=== PATIENT | female | born 2000 | race Caucasian/White ===

== ENCOUNTER → 2019-12-26 10:33 | Outpatient (BNVA) | payer OTHER, SELFPAY | PROVIDERS: Family Provider Family Medicine; Visit Provider Nurse Practitioner Family | DX: Z11.59 Encounter for screening for other viral diseases (principal); Z20.828 Contact with and (suspected) exposure to other viral communicable diseases; J06.9 Acute upper respiratory infection, unspecified | CPT/HCPCS: 87635 ==

== ENCOUNTER → 2020-08-16 13:40 | Outpatient (BNVA) | payer OTHER, SELFPAY | PROVIDERS: Family Provider Family Medicine; PCP Family Medicine; Visit Provider Obstetrics & Gynecology | DX: Z12.4 Encounter for screening for malignant neoplasm of cervix (principal) | CPT/HCPCS: 88175 ==

== ENCOUNTER → 2021-09-05 11:12 | Outpatient (BNVA) | payer OTHER, SELFPAY | PROVIDERS: Family Provider Family Medicine; Visit Provider Obstetrics & Gynecology | DX: Z01.419 Encounter for gynecological examination (general) (routine) without abnormal findings (principal) | CPT/HCPCS: 87624 ==

== ENCOUNTER → 2022-07-21 08:52 | Outpatient (BNVA) | payer OTHER, SELFPAY | PROVIDERS: Family Provider Family Medicine; Visit Provider Obstetrics & Gynecology | DX: Z32.00 Encounter for pregnancy test, result unknown (principal) | CPT/HCPCS: 81025 ==

== ENCOUNTER → 2022-08-06 07:46 | Outpatient (BNVA) | payer OTHER, SELFPAY | PROVIDERS: Family Provider Family Medicine; Visit Provider Obstetrics & Gynecology | DX: Z34.90 Encounter for supervision of normal pregnancy, unspecified, unspecified trimester (principal) | CPT/HCPCS: 76801 ==

== ENCOUNTER → 2022-08-18 14:30 | Outpatient (BNVA) | payer OTHER, SELFPAY | PROVIDERS: Family Provider Family Medicine; Visit Provider Obstetrics & Gynecology | DX: Z34.90 Encounter for supervision of normal pregnancy, unspecified, unspecified trimester (principal) | CPT/HCPCS: 80307; 84315; 85027; 86592; 86762; 86803; 86850; 86900; 87086; 87340; 87806 ==

== ENCOUNTER → 2022-09-22 13:00 | Outpatient (BNVA) | payer OTHER, BC, MEDICAID, SELFPAY | PROVIDERS: Family Provider Family Medicine; Visit Provider Obstetrics & Gynecology | DX: Z21 Asymptomatic human immunodeficiency virus [HIV] infection status (principal); Z34.90 Encounter for supervision of normal pregnancy, unspecified, unspecified trimester | CPT/HCPCS: 84315; 87389; 87536 ==

== ENCOUNTER → 2022-10-28 14:29 | Outpatient (BNVA) | payer OTHER, SELFPAY | PROVIDERS: Family Provider Family Medicine; Visit Provider Obstetrics & Gynecology | DX: Z34.80 Encounter for supervision of other normal pregnancy, unspecified trimester (principal) | CPT/HCPCS: 76805 ==

== ENCOUNTER → 2022-11-24 10:00 | Outpatient (BNVA) | payer OTHER, SELFPAY | PROVIDERS: Family Provider Family Medicine; Visit Provider Nurse Practitioner Women's Health | DX: Z34.80 Encounter for supervision of other normal pregnancy, unspecified trimester (principal) | CPT/HCPCS: 84315; 87491; 87591 ==

== ENCOUNTER → 2022-11-25 15:22 | Outpatient (BNVA) | payer OTHER, SELFPAY | PROVIDERS: Family Provider Family Medicine; Visit Provider Obstetrics & Gynecology | DX: Z34.80 Encounter for supervision of other normal pregnancy, unspecified trimester (principal) | CPT/HCPCS: 76816 ==

== ENCOUNTER → 2022-12-22 08:56 | Outpatient (BNVA) | payer OTHER, SELFPAY | PROVIDERS: Family Provider Family Medicine; Visit Provider Obstetrics & Gynecology | DX: Z34.80 Encounter for supervision of other normal pregnancy, unspecified trimester (principal) | CPT/HCPCS: 82950; 84315; 85025; 87536; 87806 ==

== ENCOUNTER → 2023-01-06 09:14 | Outpatient (BNVA) | payer OTHER, BC, MEDICAID, SELFPAY | PROVIDERS: Family Provider Family Medicine; Visit Provider Obstetrics & Gynecology | DX: Z36.2 Encounter for other antenatal screening follow-up (principal) | CPT/HCPCS: 76816 ==

== ENCOUNTER → 2023-02-16 08:04 | Outpatient (BNVA) | payer OTHER, BC, MEDICAID, SELFPAY | PROVIDERS: Family Provider Family Medicine; Visit Provider Obstetrics & Gynecology | DX: Z34.80 Encounter for supervision of other normal pregnancy, unspecified trimester (principal) | CPT/HCPCS: 84315; 87081 ==

== ENCOUNTER → 2023-03-10 09:17 | Outpatient (BNVA) | payer OTHER, BC, MEDICAID, SELFPAY | PROVIDERS: Family Provider Family Medicine; Visit Provider Obstetrics & Gynecology | DX: Z34.80 Encounter for supervision of other normal pregnancy, unspecified trimester (principal); Z21 Asymptomatic human immunodeficiency virus [HIV] infection status | CPT/HCPCS: 84315; 86592; 87536; 87806 ==

== ENCOUNTER → 2023-03-16 10:15 | Outpatient (BNVA) | payer OTHER, BC, MEDICAID, SELFPAY | PROVIDERS: Family Provider Family Medicine; Visit Provider Obstetrics & Gynecology | DX: Z34.80 Encounter for supervision of other normal pregnancy, unspecified trimester (principal) | CPT/HCPCS: 76819; 84315 ==

== ENCOUNTER 2023-03-18 16:06 | Inpatient (IN) | payer OTHER, BC, MEDICAID, SELFPAY ==
[2023-03-18] VITALS (18 sets, daily range): BP systolic 115–176; BP diastolic 62–97; PULSE 60–95; RESP 16; TEMP 36.1–36.3; BMI 27.6
--- NOTE | 2023-03-18 17:10 | PM.OBGYHP ---
Providers/Chief Complaint Admitting Physician: Efraín Qureshi MD Primary DIABETIC EDUCATOR: Efraín Qureshi MD Chief Complaint: Induction HPI DIABETIC EDUCATOR History of Present Illness 21 y.o. EDC ? March 13, 2023 by 8 week sono At 40 w 5 d h/o having + HIV Ab x two, and HIV RNA negative x two during this however, most recent blood draw one week ago showed both HIV Ab and HIV RNA being negative no other complications now admitted for labor induction No c/o + active movements POBHx: x one, uncomplicated, 6 lbs 12 oz female, OZHC, 3 years ago PMHx: none NKDA Present Details : 2 Para: 1 Labs Rubella: Immune RPR: Negative GBS: Negative Medications/Allergies Home Medications Medication Instructions Recorded Confirmed Last Taken Type prenat.vits,alan,axz-jghz-fqbnr 1 tab PO DAILY #30 tabs 07/21/22 03/16/23 03/18/23 08:00 Rx Allergies Allergy/AdvReac Type Severity Reaction Status Date / Time No Known Allergies Allergy Verified 03/16/23 11:00 PFSH DIABETIC EDUCATOR PFSH: Medical History No pertinent past medical history neghx: htn,dm,thyroid,dvt/pe PCP: None Surgical History No pertinent past surgical history Family History Mother Clotting disorder Grandmother Heart disease Paternal Hyperlipidemia Paternal Hypertension Paternal Grandfather Heart disease Paternal Hypertension Paternal Denies family history of Colon cancer Ovarian cancer Diabetes Breast cancer Thyroid disease Stroke Personal Safety: Do you feel safe at home: Yes Victim of physical abuse: No Victim of emotional abuse: No Victim of sexual abuse: No Would you like help information on resources?: No History History History 2 Term 0 1 Miscarriages/Ectopic 0 Living Children 1 Care AYSE Calculator Estimated Delivery Date Method Current WG Current Estimate 03/13/23 LMP (Uncertain) 40w 6d Vitals/I&O/Wt Last Vital Signs Temp 98.1 F 03/19/23 05:15 Pulse 62 03/19/23 05:15 Resp 15 03/19/23 05:15 BP 110/67 03/19/23 05:15 Pulse Ox 97 03/19/23 05:15 O2 Del Method Room Air 03/19/23 05:15 03/18/23 03/19/23 03/19/23 22:59 06:59 14:59 Intake Total 527.00 / 527.00 0 / 527.00 Balance 527.00 / 527.00 0 / 527.00 Weight last 48 hrs Weight 151 lb Physical Exam Narrative: Weight 151? lbs, ? 5?2? VS normal Comfortable, awake, alert Lungs: clear Cor: RRR Abd: soft, nontender FH 37? cm,? cephalic Cervix: 2 cm / -3 / posterior FHTs normal Ext: no edema External monitor: heart tracing good variability,? + accelerations Data 03/19/23 10:30 Results Labs OB ([facility]): Obstetrics US 01/06/23 Obstetrics US/Biophysical Profile 03/16/23 Blood Type A Positive 03/18/23 Antibody Screen Negative 03/18/23 Hct 33.6 % (36-47) L 03/19/23 Hgb 10.80 g/dL (11.27-16.99) L 03/19/23 Rho(D) Type Rh positive 03/18/23 Plt Count 255 10^3/cmm (157-399) 03/19/23 Hep Bs Antigen Non-reactive (Nonreactive) 08/18/22 Hep Bs Antibody 3.5 (0-8.5) 10/06/19 Hepatitis C Antibody Non-reactive (Nonreactive) 08/18/22 Rubella IgG Antibody 36.1 IU/mL (0.0-10.0) H 08/18/22 RPR Nonreactive (Nonreactive) 03/18/23 HIV 1&2 Ab & HIV 1 Ag Non-reactive (Non-Reactiv) 03/10/23 HIV 1&2 Ag/Ab, 4th Gen Non-reactive (NON-REACTIVE) 09/22/22 C.trachomatis RNA (TMA) Not detected (NOT DETECTED) 11/24/22 N.gonorrhoeae RNA (TMA) Not detected (NOT DETECTED) 11/24/22 Chlamydia/GC Comment See note 11/24/22 Cystic Fibrosis Screen Negative 08/18/22 Gest Glucose Tolerance 58 mg/dL (70-139) L 12/22/22 VZV IgG Antibody 307.30 index 10/06/19 HCG, Qual Positive (Negative) H 07/21/22 Urine Opiates Screen Negative ng/mL (Negative) 08/18/22 Ur Barbiturates Screen Negative ng/mL (Negative) 08/18/22 Ur Phencyclidine Scrn Negative ng/mL (Negative) 08/18/22 Ur Amphetamines Screen Negative ng/mL (Negative) 08/18/22 U Benzodiazepines Scrn Negative ng/mL (Negative) 08/18/22 Urine Cocaine Screen Negative ng/mL (Negative) 08/18/22 U Marijuana (THC) Screen Negative ng/mL (Negative) 08/18/22 Micro Urine Specimen 08/18/22 Pap Smear Interpret See note 09/05/21 A&P Assessment and plan (1) Encounter for induction of labor: 40 w 5 d Fetus reassuring GBS? negative Admit for labor induction Plan start Pitocin per protocol (2) HIV antibody positive: Patient had two positive HIV antibody tests with negative HIV RNA testing however, most recent blood draw one week ago showed both HIV Ab and HIV RNA being negative Plan inform pediatrics re testing after Plan refer patient to ID after delivery Attestations Medical Necessity Statement*: patient at 40 w 5 d, admitted for laor induction Coding Level of Care Code Acute Code for Chg Fwd Diagnoses Encounter for induction of labor Z34.90 HIV antibody positive Z21 Time Spent (min) 30
[2023-03-18] MEDS: dextrose 5%-lactated ringers 1,000 ML 125 ML IV (17:15)
[2023-03-18] MEDS: oxytocin 30 UNIT/500 ML BAG IV (17:15)
[2023-03-18 18:17] LABS: Basophils % 0.2 %; Eosinophils # 0.1 10^3/uL (0.0-0.8); Hematocrit 32.5 % (36-47); Lymphocytes # 1.6 10^3/uL (0.8-4.8); Lymphocytes % 18.7 %; Mean Corpuscular HGB Conc 32.9 g/dL (30-55); Mean Corpuscular Hemoglobin 25.2 pg (27-33); Mean Corpuscular Volume 76.5 fl (85-98); Mean Platelet Volume 10.5 fL (7.4-10.4); Monocytes # 0.8 10^3/uL (0.2-0.9); Monocytes % 9.4 %; Neutrophils # 6.08 10^3/uL (1.8-7.7); Neutrophils % 70.2 %; Nucleated Red Blood Cells % 0 %; Platelet Count 279 10^3/cmm (157-399); Red Blood Count 4.25 10^6/uL (3.85-5.65); Red Cell Distribution Width 13.5 % (12.1-15.1); White Blood Count 8.66 10^3/uL (3.29-11.43)
[2023-03-18] MEDS: lactated ringers 1,000 ML 999 ML IV (19:45)
[2023-03-18 20:17] LABS: Rapid Plasma Reagin Syphilis Nonreactive (Nonreactive)
[2023-03-18] MEDS: fentaNYL 50 mcg/mL INJ 2mL IVP (20:22)
--- NOTE | 2023-03-18 21:25 | P.PN_ITS ---
RESPIRATORY THERAPY ASSISTANT Subjective 2 Subjective: Interval history: DELIVERY NOTE , vigorous female infant Cord gases and blood obtained Normal placenta and cord No episiotomy or lacerations EBL:? 300 cc No complications Labor: Station: +1 Amniotic Membrane Status: Ruptured Monitor Mode: External Contraction Pattern: Regular Vitals/I&O/Wt Last Vital Signs Temp 98.1 F 03/19/23 05:15 Pulse 62 03/19/23 05:15 Resp 15 03/19/23 05:15 BP 110/67 03/19/23 05:15 Pulse Ox 97 03/19/23 05:15 O2 Del Method Room Air 03/19/23 05:15 03/18/23 03/19/23 03/19/23 22:59 06:59 14:59 Intake Total 527.00 / 527.00 0 / 527.00 Balance 527.00 / 527.00 0 / 527.00 Weight last 48 hrs Weight 151 lb Data 03/19/23 10:30 A&P Assessment and plan (1) Vaginal delivery: Attestations 2 Medical Necessity Statement*: patient admitted for labor induction, s/p vaginal delivery Coding Level of Care Code Acute Code for Chg Fwd Diagnoses Vaginal delivery O80 Time Spent (min) 45
--- NOTE | 2023-03-18 21:35 | PM.DELIVERY ---
Delivery Note: Date of delivery: March 18, 2023 Pre-delivery diagnoses: 40 w 5 d admit for labor induction Post-delivery diagnoses: same as above vaginal delivery Procedure: labor induction vaginal delivery Op report anesthesia: None Delivering Physician: Efraín Qureshi MD Estimated blood loss (mL): 300 Findings: , vigorous female Cord gases and blood obtained Normal placenta and cord No episiotomy or lacerations EBL:? 300 cc No complications Pre-Delivery Course: normal labor course Delivery: vaginal Post-Delivery Status: good History History History 2 Term 0 1 Miscarriages/Ectopic 0 Living Children 1 A&P Assessment and plan (1) Vaginal delivery: care Coding Level of Care Code Acute Code for Chg Fwd Diagnoses Vaginal delivery O80 Time Spent (min) 45
[2023-03-19 00:15] VITALS: BP 129/80; PULSE 77; RESP 16; TEMP 36.7; O2SAT 97
[2023-03-19 03:20] VITALS: BP 114/70; PULSE 62; RESP 15; TEMP 36.7; O2SAT 96
[2023-03-19 05:15] VITALS: BP 110/67; PULSE 62; RESP 15; TEMP 36.7; O2SAT 97
[2023-03-19] MEDS: acetaminophen 325 mg Tablet 650 MG PO (06:08)
[2023-03-19 11:00] VITALS: BP 121/76; PULSE 64; RESP 15; TEMP 36.7
[2023-03-19 11:02] LABS: Hematocrit 33.6 % (36-47); Mean Corpuscular HGB Conc 32.1 g/dL (30-55); Mean Corpuscular Hemoglobin 24.9 pg (27-33); Mean Corpuscular Volume 77.6 fl (85-98); Mean Platelet Volume 10.4 fL (7.4-10.4); Platelet Count 255 10^3/cmm (157-399); Red Blood Count 4.33 10^6/uL (3.85-5.65); Red Cell Distribution Width 13.3 % (12.1-15.1); White Blood Count 12.82 10^3/uL (3.29-11.43)
--- NOTE | 2023-03-19 12:10 | P.PN_ITS ---
[employer] Subjective 2 Subjective: Interval history: no c/o no bleeding, pain eating, voiding, ambulating well caring for without any problems Labor: Station: +1 Amniotic Membrane Status: Ruptured Monitor Mode: External Contraction Pattern: Regular Vitals/I&O/Wt Last Vital Signs Temp 98.1 F 03/19/23 21:40 Pulse 71 03/19/23 21:40 Resp 16 03/19/23 21:40 BP 118/73 03/19/23 21:40 Pulse Ox 98 03/19/23 16:45 O2 Del Method Room Air 03/19/23 16:45 Physical Exam 2 Narrative: afebrile, VS normal comfortable, awake, alert Lungs: clear Cor: RRR Abd:? soft, nontender.? fundus firm Ext:? no edema;? nontender Data 03/19/23 10:30 A&P Assessment and plan (1) Vaginal delivery: PPD #1? doing well discharge home today instructions and precautions given call/return if fever, chills, headache, blurry vision, nausea, vomiting, abdominal pain; vaginal bleeding or discharge; shortness of breath, chest pain, leg pains or swelling; inability to void, perineal pain or swelling; feelings of depression or mood changes; thoughts of suicide or harming others; inability to care for baby. f/u in 6 weeks or PRN Attestations 2 Medical Necessity Statement*: patient s/p vaginal delivery, plan discharge today Coding Level of Care Code Acute Code for Chg Fwd Diagnoses Vaginal delivery O80 Time Spent (min) 20
--- NOTE | 2023-03-19 13:10 | PM.OBGYDC ---
Discharge Providers HYDROTREATER OPERATOR Date of Admission: 03/18/23 16:06 Date of Discharge: 03/19/23 Attending Provider at Admission: Efraín Qureshi MD Attending Provider at Discharge: Efraín Qureshi MD Consults: none Primary HYDROTREATER OPERATOR: Efraín Qureshi MD Diagnoses at Discharge Discharge Diagnosis (1) Vaginal delivery: Details from hospital stay: patient was admitted for labor induction at 40 w 5 d had normal labor progress had vaginal delivery with no perineal lacerations did well was discharged to home on day #1 Status: Acute Reason for Visit Reason for Visit: Induction Hospital Course Hospital Course patient was admitted for labor induction at 40 w 5 d had normal labor progress had vaginal delivery with no perineal lacerations did well was discharged to home on day #1 Information Peripartum Data: Delivery Method: Vaginal Laceration description: None Episiotomy description: None complications: none Physical Exam Narrative: afebrile, VS normal comfortable, awake, alert Lungs: clear Cor: RR Abd:? soft, nontender.? fundus firm ext:? no edema;? nontender History History History 2 Term 0 1 Miscarriages/Ectopic 0 Living Children 1 Discharge Data Studies Completed and Pending Laboratory Results WBC 12.82 10^3/uL (3.29-11.43) H 03/19/23 10:30 Corrected WBC Cancelled 03/18/23 16:30 RBC 4.33 10^6/uL (3.85-5.65) 03/19/23 10:30 Hgb 10.80 g/dL (11.27-16.99) L 03/19/23 10:30 Hct 33.6 % (36-47) L 03/19/23 10:30 MCV 77.6 fl (85-98) L 03/19/23 10:30 MCH 24.9 pg (27-33) L 03/19/23 10:30 MCHC 32.1 g/dL (30-55) 03/19/23 10:30 RDW 13.3 % (12.1-15.1) 03/19/23 10:30 Plt Count 255 10^3/cmm (157-399) 03/19/23 10:30 MPV 10.4 fL (7.4-10.4) 03/19/23 10:30 Gran % Cancelled 03/18/23 16:30 Neut % (Auto) Cancelled 03/18/23 16:30 Lymph % (Auto) Cancelled 03/18/23 16:30 [place] % (Auto) Cancelled 03/18/23 16:30 Eos % (Auto) Cancelled 03/18/23 16:30 Baso % (Auto) Cancelled 03/18/23 16:30 Neut # (Auto) Cancelled 03/18/23 16:30 Lymph # (Auto) Cancelled 03/18/23 16:30 [place] # (Auto) Cancelled 03/18/23 16:30 Eos # (Auto) Cancelled 03/18/23 16:30 Baso # (Auto) Cancelled 03/18/23 16:30 Absolute Gran (auto) Cancelled 03/18/23 16:30 Nucleated RBC % (auto) Cancelled 03/18/23 16:30 Nucleated RBCs # Cancelled 03/18/23 16:30 RPR Nonreactive (Nonreactive) 03/18/23 18:55 Blood Type Cancelled 03/18/23 16:30 Rho(D) Type Cancelled 03/18/23 16:30 Antibody Screen Cancelled 03/18/23 16:30 Procedures Performed labor induction vaginal delivery Vitals Last Vital Signs Temp 98.1 F 03/19/23 21:40 Pulse 71 03/19/23 21:40 Resp 16 03/19/23 21:40 BP 118/73 03/19/23 21:40 Pulse Ox 98 03/19/23 16:45 O2 Del Method Room Air 03/19/23 16:45 Results Labs OB ([facility]): Obstetrics US 01/06/23 Obstetrics US/Biophysical Profile 03/16/23 Blood Type A Positive 03/18/23 Antibody Screen Negative 03/18/23 Hct 33.6 % (36-47) L 03/19/23 Hgb 10.80 g/dL (11.27-16.99) L 03/19/23 Rho(D) Type Rh positive 03/18/23 Plt Count 255 10^3/cmm (157-399) 03/19/23 Hep Bs Antigen Non-reactive (Nonreactive) 08/18/22 Hep Bs Antibody 3.5 (0-8.5) 10/06/19 Hepatitis C Antibody Non-reactive (Nonreactive) 08/18/22 Rubella IgG Antibody 36.1 IU/mL (0.0-10.0) H 08/18/22 RPR Nonreactive (Nonreactive) 03/18/23 HIV 1&2 Ab & HIV 1 Ag Non-reactive (Non-Reactiv) 03/10/23 HIV 1&2 Ag/Ab, 4th Gen Non-reactive (NON-REACTIVE) 09/22/22 C.trachomatis RNA (TMA) Not detected (NOT DETECTED) 11/24/22 N.gonorrhoeae RNA (TMA) Not detected (NOT DETECTED) 11/24/22 Chlamydia/GC Comment See note 11/24/22 Cystic Fibrosis Screen Negative 08/18/22 Gest Glucose Tolerance 58 mg/dL (70-139) L 12/22/22 VZV IgG Antibody 307.30 index 10/06/19 HCG, Qual Positive (Negative) H 07/21/22 Urine Opiates Screen Negative ng/mL (Negative) 08/18/22 Ur Barbiturates Screen Negative ng/mL (Negative) 08/18/22 Ur Phencyclidine Scrn Negative ng/mL (Negative) 08/18/22 Ur Amphetamines Screen Negative ng/mL (Negative) 08/18/22 U Benzodiazepines Scrn Negative ng/mL (Negative) 08/18/22 Urine Cocaine Screen Negative ng/mL (Negative) 08/18/22 U Marijuana (THC) Screen Negative ng/mL (Negative) 08/18/22 Micro Urine Specimen 08/18/22 Pap Smear Interpret See note 09/05/21 Discharge Plan Discharge Patient Disposition: Home Condition: Stable Prescriptions: Continued prenat.vits,alan,rwr-[id number] Tablet 1 tab PO DAILY Qty: 30 12RF Discharge Orders: Discharge Order (Routine); Ordered 03/19/23 Ordered By: Efraín Qureshi Discharge Diet: Usual diet Discharge Activity: Increase activity as tolerated Patient Instructions: Depression (DC), Preeclampsia and Eclampsia After Delivery (GEN), Hemorrhage (DC), OB Discharge Report, OB Food/Drug Interaction Guide, Opioid Safety, OB Home Care, OB Vaginal Deliveries, Abnormal Bleeding Discharge Attestations HYDROTREATER OPERATOR Time Spent in Discharge Care*: less than 30 min Coding Level of Care Code Acute Code for Chg Fwd Diagnoses Vaginal delivery O80 Time Spent (min) 20
[2023-03-19 16:45] VITALS: BP 123/77; PULSE 65; RESP 14; TEMP 36.7; O2SAT 98
[2023-03-19] MEDS: ibuprofen 800 mg tablet PO ×2 (17:05→21:38)
[2023-03-19] MEDS: docusate sodium 100 mg Capsule PO (17:05)
[2023-03-19 21:40] VITALS: BP 118/73; PULSE 71; RESP 16; TEMP 36.7
== END 2023-03-19 21:44 | disposition home or self-care (01) | DRG 807 ==
LOC: OPOB 16:13 → OBGYN 21:50 → OPOB 03-19 08:26
PROVIDERS: Admitting Provider Obstetrics & Gynecology; Family Provider Family Medicine; Visit Provider Obstetrics & Gynecology
DX: O48.0 Post-term pregnancy (principal); Z37.0 Single live birth; Z3A.40 40 weeks gestation of pregnancy; O99.334 Smoking (tobacco) complicating childbirth; F17.290 Nicotine dependence, other tobacco product, uncomplicated; Z21 Asymptomatic human immunodeficiency virus [HIV] infection status
CPT/HCPCS: 36415; 59025; 59409; 85025; 85027; 86592; 86850; 86900; 96374; 99211; J2590; J3010; J7120; J7121

== ENCOUNTER → 2024-03-10 10:39 | Outpatient (BNVA) | payer BC, MEDICAID, SELFPAY | PROVIDERS: Family Provider Family Medicine; Visit Provider Nurse Practitioner Women's Health | DX: Z32.01 Encounter for pregnancy test, result positive (principal); N91.2 Amenorrhea, unspecified | CPT/HCPCS: 81025; 84702; 86850; 86900 ==

== ENCOUNTER → 2024-03-15 09:30 | Outpatient (BNVA) | payer BC, MEDICAID, SELFPAY | PROVIDERS: Family Provider Family Medicine; Visit Provider Nurse Practitioner Women's Health | DX: Z36.9 Encounter for antenatal screening, unspecified (principal) | CPT/HCPCS: 76801 ==

== ENCOUNTER 2024-03-23 09:11 | Emergency (ER) | payer BC, MEDICAID, SELFPAY ==
[2024-03-23 09:18] VITALS: BP 87/61; PULSE 70; RESP 18; TEMP 36.3; O2SAT 100; BMI 21.0
--- NOTE | 2024-03-23 09:44 | W.ED.PREGNAN ---
HPI - General: Chief complaint: Vaginal Bleeding Stated complaint: 8wkspregant,cramping/bleeding Time Seen by Provider: 03/23/24 09:34 History of Present Illness: 23-year-old female G3, P2 at approximately 8 weeks gestation who presents emergency room complaining of vaginal bleeding. had sudden onset of vaginal bleeding shortly before arriving in the emergency room and soaked through some of her clothing. She has not had any problems with this to this point. She has had an ultrasound confirming intrauterine with heart tones. Associated symptoms: Deny abdominal pain or dysuria Related Data Home Medications Medication Instructions Recorded Confirmed vit 168-iron 27 mg-folic 1 cap PO DAILY 03/23/24 03/23/24 acid 800 mcg-omega3 235 mg capsule Allergies Allergy/AdvReac Type Severity Reaction Status Date / Time No Known Allergies Allergy Verified 03/08/24 10:07 Review of Systems Const: Denies: fever(s) or chills Card: Denies: chest pain Resp: Denies: dyspnea GI: Denies: abdominal pain : Reports: vaginal bleeding; Denies: dysuria, urinary frequency or urinary urgency Musc: Denies: neck pain or back pain Skin/Breast: Denies: rash PFSH ED PFSH: Medical History Vaginal delivery Encounter for induction of labor HIV antibody positive No pertinent past medical history neghx: htn,dm,thyroid,dvt/pe PCP: None Surgical History No pertinent past surgical history Family History Mother Clotting disorder Grandmother Heart disease Paternal Hyperlipidemia Paternal Hypertension Paternal Grandfather Heart disease Paternal Hypertension Paternal Denies family history of Colon cancer Ovarian cancer Diabetes Breast cancer Thyroid disease Stroke Social History Smoking and tobacco/nicotine status: current every day tobacco/nicotine user Physical Exam Const: COMMON NORMALS: no acute distress GENERAL APPEARANCE: cooperative and comfortable ORIENTATION/CONSCIOUSNESS: Yes awake, Yes oriented to person, Yes oriented to place and Yes oriented to time HENMT: COMMON NORMALS: normocephalic, atraumatic and hearing grossly normal bilaterally HEAD & SCALP: normocephalic and atraumatic Resp: COMMON NORMALS: normal respiratory effort, No retractions, No use of accessory muscles and clear to auscultation bilaterally AUSCULTATION: clear to auscultation bilaterally Cardio: COMMON NORMALS: regular rate, regular rhythm and No murmurs present (Cardio) RATE: regular rate RHYTHM: regular rhythm GI: COMMON NORMALS: Soft to palpation and No hepatosplenomegaly present AUSCULTATION: Yes normoactive bowel sounds PALPATION: Yes Soft to palpation, No Tenderness to palpation present (GI), No Guarding due to palpation present (GI) and Yes No hepatosplenomegaly present Extremity: COMMON NORMALS: normal to inspection, capillary refill normal, no clubbing, cyanosis or edema, no calf tenderness and no pedal edema Neuro: SENSORIUM/ORIENTATION: Yes oriented to person, Yes oriented to place and Yes oriented to time Skin: COMMON NORMALS: no rashes or lesions noted GENERAL SKIN EXAM: no rashes or lesions noted Course Vital Signs: Vital signs: Vital Signs Temperature 97.4 F L 03/23/24 09:18 Pulse Rate 78 03/23/24 11:49 Respiratory Rate 18 03/23/24 09:18 Blood Pressure 116/79 03/23/24 11:49 Pulse Oximetry 96 03/23/24 11:49 Oxygen Delivery Me thod Room Air 03/23/24 11:34 MDM - OB/Uterine Contractions Medical Decision Making Bleeding is slowed down nearly stopped. Subchorionic hemorrhage on ultrasound with good heart tones. Normal interval development. Will discharge patient home discussed usual course of the subchorionic hemorrhage given the size noted on the ultrasound suspect she will continue to have intermittent spotting may even change color and get some old blood over time. If bleeding becomes markedly increased and there is abdominal pain or cramping return to the emergency room Medical Records I reviewed the patient's medical records. Lab Data I reviewed the patient's lab results. 03/23/24 09:40 03/23/24 09:40 Radiology Impressions Obstetrics Ultrasound 03/23/24 09:50 IMPRESSION: 1. Single intrauterine gestation of 8w2d with an EDC of 10/31/2024. 2. Normal cardiac activity. 3. Large anterior subchorionic hematoma measures 5.5 x 2.9 x 4.5 cm. Laboratory Results WBC 9.94 10^3/uL (3.29-11.43) 03/23/24 09:40 RBC 5.08 10^6/uL (3.85-5.65) 03/23/24 09:40 Hgb 13.60 g/dL (11.27-16.99) 03/23/24 09:40 Hct 40.3 % (36-47) 03/23/24 09:40 MCV 79.3 fl (85-98) L 03/23/24 09:40 MCH 26.8 pg (27-33) L 03/23/24 09:40 MCHC 33.7 g/dL (30-55) 03/23/24 09:40 RDW 14.6 % (12.1-15.1) 03/23/24 09:40 Plt Count 354 10^3/cmm (157-399) 03/23/24 09:40 MPV 9.9 fL (7.4-10.4) 03/23/24 09:40 Neut % (Auto) 66.2 % 03/23/24 09:40 Lymph % (Auto) 23.6 % 03/23/24 09:40 [place] % (Auto) 7.7 % 03/23/24 09:40 Eos % (Auto) 1.8 % 03/23/24 09:40 Baso % (Auto) 0.3 % 03/23/24 09:40 Neut # (Auto) 6.57 10^3/uL (1.8-7.7) 03/23/24 09:40 Lymph # (Auto) 2.4 10^3/uL (0.8-4.8) 03/23/24 09:40 [place] # (Auto) 0.8 10^3/uL (0.2-0.9) 03/23/24 09:40 Eos # (Auto) 0.2 10^3/uL (0.0-0.8) 03/23/24 09:40 Baso # (Auto) 0.0 10^3/uL (0.0-0.1) 03/23/24 09:40 Nucleated RBC % (auto) 0 % 03/23/24 09:40 Nucleated RBCs # 0.0 /100WBC 03/23/24 09:40 Sodium 134 mmol/L (136-145) L 03/23/24 09:40 Potassium 4.0 mmol/L (3.5-5.1) 03/23/24 09:40 Chloride 98 mmol/L (98-107) 03/23/24 09:40 Carbon Dioxide 22 mmol/L (22-29) 03/23/24 09:40 Anion Gap 18.0 (5-19) 03/23/24 09:40 BUN 8 mg/dL (6-20) 03/23/24 09:40 Creatinine 0.4 mg/dL (0.5-0.9) L 03/23/24 09:40 GFR Calculation 194.5 mL/min (90-130) H 03/23/24 09:40 Glucose 79 mg/dL (65-115) 03/23/24 09:40 Calculated Osmolality 275 mOsm/kg (285-295) L 03/23/24 09:40 Calcium 9.8 mg/dL (8.5-10.5) 03/23/24 09:40 Total Bilirubin 0.9 mg/dL (0.15-1.2) 03/23/24 09:40 AST 17 U/L (0-32) 03/23/24 09:40 ALT 15 U/L (0-33) 03/23/24 09:40 Alkaline Phosphatase 74 U/L (35-105) 03/23/24 09:40 Total Protein 7.7 g/dL (6.6-8.7) 03/23/24 09:40 Albumin 4.6 g/dL (3.5-5.2) 03/23/24 09:40 Globulin 3.1 g/dL (1.3-4.6) 03/23/24 09:40 Ser , Semi-Qnt 015680.00 mIU/mL 03/23/24 09:40 All radiology interpretation(s) finalized by discharge Discharge Plan Discharge Patient Disposition: Home Clinical Impression: Subchorionic hematoma in first trimester Condition: Stable Prescriptions: No Action 251-[id number]-yzdge-omega3 27 mg iron- 800 mcg-235 mg Capsule 1 cap PO DAILY Discharge Orders: Discharge ED (Routine); Ordered 03/23/24 Ordered By: Adrian Coyne Referrals: Raymond Crawley, [Family Provider] - Discharge Diet: Usual diet Discharge Activity: Limit activity as instructed Patient Instructions: Opioid Safety, Pain Management Activity Restrictions/Additional Instructions: Thank you for choosing [facility] for your healthcare needs today. It is very important that you follow up as instructed or that you return to the Emergency Department should you have concerns or if your condition changes or worsens in any way. You are seen in the emergency room with vaginal bleeding. Ultrasound showed good heart activity and viability at this time. You did have a fairly good sized subchorionic hematoma you will likely continue to have some bleeding and spotting some of the blood may appear old at times. Recommend avoid any exertional activities pelvic rest (nothing per vagina, no sexual activity). Follow-up with your primary OB within the next week. Return if you have worsening pain or marked increase in bleeding or spotting Coding Level of Care Code ED Director Of Nursing for Glenn Rangel
[2024-03-23 09:49] LABS: Basophils % 0.3 %; Eosinophils # 0.2 10^3/uL (0.0-0.8); Eosinophils % 1.8 %; Hematocrit 40.3 % (36-47); Lymphocytes # 2.4 10^3/uL (0.8-4.8); Lymphocytes % 23.6 %; Mean Corpuscular HGB Conc 33.7 g/dL (30-55); Mean Corpuscular Hemoglobin 26.8 pg (27-33); Mean Corpuscular Volume 79.3 fl (85-98); Mean Platelet Volume 9.9 fL (7.4-10.4); Monocytes # 0.8 10^3/uL (0.2-0.9); Monocytes % 7.7 %; Neutrophils # 6.57 10^3/uL (1.8-7.7); Neutrophils % 66.2 %; Nucleated Red Blood Cells % 0 %; Platelet Count 354 10^3/cmm (157-399); Red Blood Count 5.08 10^6/uL (3.85-5.65); Red Cell Distribution Width 14.6 % (12.1-15.1); White Blood Count 9.94 10^3/uL (3.29-11.43)
--- NOTE | 2024-03-23 09:50 | US_ITS ---
WS: [id number] EARLY OBSTETRICAL ULTRASOUND (<14 WEEKS). HISTORY: wellbeing, sudden onset vaginal bleeding COMPARISON: 03/15/2024 There is a large anterior subchorionic hematoma measuring 5.5 x 2.9 x 4.5 cm. There is an additional smaller fluid collection along the lower uterine segment which may be an additional smaller collectio n or blood from the larger subchorionic hematoma. Single intrauterine gestational sac is identified. Cardiac activity at 171 BPM. [place]-rump length gutierrez sures 1.8 cm which corresponds to a gestation of 8w2d. Normal-appearing yolk sac and amnion demonstra salty. No subchorionic hemorrhage. No free fluid. Normal size ovaries with no mass. Dominant corpus luteal cyst LEFT ovary measures 2.3 x 2.6 x 2.7 cm. US/US OB limited [id number] IMPRESSION: 1. Single intrauterine gestation of 8w2d with an EDC of 10/31/2024. 2. Normal cardiac activity. 3. Large anterior subchorionic hematoma measures 5.5 x 2.9 x 4.5 cm.
[2024-03-23 09:58] VITALS: BP 126/92; O2SAT 98
[2024-03-23 10:19] LABS: Alanine Aminotransferase 15 U/L (0-33); Albumin Level 4.6 g/dL (3.5-5.2); Alkaline Phosphatase 74 U/L (35-105); Aspartate Amino Transferase 17 U/L (0-32); Blood Urea Nitrogen 8 mg/dL (6-20); Calcium 9.8 mg/dL (8.5-10.5); Carbon Dioxide 22 mmol/L (22-29); Chloride 98 mmol/L (98-107); Creatinine Clr Calc Pharmacy 172.8451; Globulin 3.1 g/dL (1.3-4.6); Glomerular Filtration Rate 194.5 mL/min (90-130); Glucose 79 mg/dL (65-115); Osmolality Calculated 275 mOsm/kg (285-295); Sodium 134 mmol/L (136-145); Total Bilirubin 0.9 mg/dL (0.15-1.2); Total Protein 7.7 g/dL (6.6-8.7)
[2024-03-23 11:22] VITALS: BP 110/67; O2SAT 99
[2024-03-23 11:34] VITALS: BP 116/79; PULSE 72; O2SAT 98
[2024-03-23 11:49] VITALS: BP 116/79; PULSE 78; O2SAT 96
== END 2024-03-23 11:50 | disposition home or self-care (01) ==
PROVIDERS: Emergency Provider Family Medicine
DX: O43.891 Other placental disorders, first trimester (principal); Z3A.08 8 weeks gestation of pregnancy; Z72.0 Tobacco use
CPT/HCPCS: 36415; 76815; 80053; 84702; 85025; 99284

== ENCOUNTER → 2024-04-06 10:55 | Outpatient (BNVA) | payer BC, MEDICAID, SELFPAY | PROVIDERS: Visit Provider Nurse Practitioner Women's Health | DX: Z34.90 Encounter for supervision of normal pregnancy, unspecified, unspecified trimester (principal) | CPT/HCPCS: 80307; 84315; 84443; 86592; 86762; 86803; 86850; 86900; 87086; 87340; 87491; 87591; 87661; 87806 ==

== ENCOUNTER → 2024-04-25 13:59 | Outpatient (BNVA) | payer BC, MEDICAID, SELFPAY | PROVIDERS: Visit Provider Obstetrics & Gynecology | DX: Z34.90 Encounter for supervision of normal pregnancy, unspecified, unspecified trimester (principal) | CPT/HCPCS: 84315; 88175 ==

== ENCOUNTER → 2024-05-23 08:11 | Outpatient (BNVA) | payer SELFPAY | PROVIDERS: Visit Provider Nurse Practitioner Women's Health | DX: Z34.90 Encounter for supervision of normal pregnancy, unspecified, unspecified trimester (principal) | CPT/HCPCS: 81000; 82105; 84439; 84443; 84481 ==

== ENCOUNTER → 2024-06-20 09:52 | Outpatient (BNVA) | payer SELFPAY | PROVIDERS: Visit Provider Obstetrics & Gynecology | DX: Z36.9 Encounter for antenatal screening, unspecified (principal) | CPT/HCPCS: 76805 ==

== ENCOUNTER 2024-09-21 04:20 | Outpatient (CLI) | payer SELFPAY ==
[2024-09-21] VITALS (11 sets, daily range): BP systolic 116–134; BP diastolic 59–77; PULSE 55–78; BMI 24.7
[2024-09-21 05:22] LABS: Glucose Urine UA Negative (Normal); Nitrate Urine Negative (Negative); Specific Gravity, Urine 1.016 (1.005-1.030)
[2024-09-21 05:59] LABS: UA Slide Review UA Slide Review Perf
== END 2024-09-21 08:36 | disposition home or self-care (01) ==
LOC: OPOB 04:29 → OBGYN 04:31
PROVIDERS: Visit Provider Obstetrics & Gynecology
DX: O26.899 Other specified pregnancy related conditions, unspecified trimester (principal); Z3A.00 Weeks of gestation of pregnancy not specified; M54.9 Dorsalgia, unspecified
CPT/HCPCS: 59025; 81001; 99211

== ENCOUNTER 2024-10-20 19:40 | Inpatient (IN) | payer SELFPAY ==
[2024-10-20] VITALS (7 sets, daily range): BP systolic 118–153; BP diastolic 62–91; PULSE 55–82; BMI 24.8
[2024-10-20 20:04] LABS: Hematocrit 34.4 % (36-47); Hemoglobin 11.10 g/dL (11.27-16.99); Mean Corpuscular HGB Conc 32.3 g/dL (30-55); Mean Corpuscular Hemoglobin 23.3 pg (27-33); Mean Corpuscular Volume 72.3 fl (85-98); Nucleated Red Blood Cells % 0 %; Platelet Count 254 10^3/cmm (157-399); Red Blood Count 4.76 10^6/uL (3.85-5.65); White Blood Count 15.98 10^3/uL (3.29-11.43)
--- NOTE | 2024-10-20 20:10 | PM.OBGYHP ---
Providers/Chief Complaint Admitting Physician: Efraín Qureshi MD Chief Complaint: Ctx. HPI ADMINISTRATIVE INTERN History of Present Illness Carolyn Valdovinos is a 24 year old female EDC October 31, 2024 At 38 w 4 d Last visit here was April 25, 2024 Presents to L&D c/o painful uterine contractions No bleeding / fluid leakage + active movements POBHx: x two, uncomplicated Present Details : 3 Para: 2 Labs Rubella: Immune RPR: Negative GBS: Unknown Medications/Allergies Home Medications ?Medication ?Instructions ?Recorded ?Confirmed ?Last Taken ?Type Tylenol Extended Release 1 - 2 tab PO PRN PRN Pain 10/21/24 10/21/24 10/20/24 19:13 History Allergies Allergy/AdvReac Type Severity Reaction Status Date / Time No Known Allergies Allergy Verified 10/21/24 00:59 PFSH ADMINISTRATIVE INTERN PFSH: Medical History Vaginal delivery Encounter for induction of labor HIV antibody positive No pertinent past medical history neghx: htn,dm,thyroid,dvt/pe PCP: None Surgical History No pertinent past surgical history Family History Mother Clotting disorder Grandmother Heart disease Paternal Hyperlipidemia Paternal Hypertension Paternal Grandfather Heart disease Paternal Hypertension Paternal Denies family history of Colon cancer Ovarian cancer Diabetes Breast cancer Thyroid disease Stroke Social History Smoking and tobacco/nicotine status: current every day tobacco/nicotine user Personal Safety: Do you feel safe at home: Yes Victim of physical abuse: No Victim of emotional abuse: No Victim of sexual abuse: No Would you like help information on resources?: No History History History 2 Term 1 1 Miscarriages/Ectopic 0 Living Children 2 Care AYSE Calculator Estimated Delivery Date Method Current WG Current Estimate 10/31/24 Ultrasound #1 38w 4d Other Estimates 09/24/24 LMP (Certain) 43w 6d Specific Issues/Plans ELEVATED TSH: 4.43 on 04/06/24, repeat drawn 05/23/24 with t3 & t4 POSTIVE HIV ANTIBODY: HIV PCR and RNA negative 03/10/24 SUBCHORIONIC HEMORRHAGE: U/S 04/01/24- 4.0 x 2.2 x 2.7 cm U/S 03/23/24- 5.5 x 2.9 x 4.5 cm Vitals/I&O/Wt Last Vital Signs Pulse 80 10/21/24 02:05 Resp 17 10/21/24 02:05 BP 135/76 10/21/24 02:05 Pulse Ox 97 10/21/24 00:36 O2 Del Method Room Air 10/21/24 02:05 Weight last 48 hrs Weight 136 lb Physical Exam Narrative: Weight 136 lbs; 5?2? VS normal General awake, alert, appropriate Lungs: clear Cor: RRR Abd: gravid Cervix: 8 cm / 100 % / -2 / BBOW Ext: normal External monitor: regular [facility] heart tracing good variability, + accelerations Data 10/20/24 19:30 Results Labs OB ([facility]): Obstetrics US 04/01/24 Obstetrics US/Biophysical Profile 03/16/23 Blood Type A Positive 10/20/24 Antibody Screen Negative 10/20/24 Hct, (36-47) 34.4 % L 10/20/24 Hgb, (11.27-16.99) 11.10 g/dL L 10/20/24 Rho(D) Type Rh positive 10/20/24 Plt Count, (157-399) 254 10^3/cmm 10/20/24 Hep Bs Antigen, (Nonreactive) Non-reactive 04/06/24 Hepatitis C Antibody, (Nonreactive) Non-reactive 04/06/24 Rubella IgG Antibody, (0.0-10.0) 37.2 IU/mL H 04/06/24 RPR, (Nonreactive) Nonreactive 04/06/24 HIV 1&2 Ab & HIV 1 Ag, (Non-Reactiv) Non-reactive 04/06/24 TSH, (0.27-4.20) 4.19 uIU/mL 05/23/24 Free T4, (0.82-1.77) 1.07 ng/dL 05/23/24 Ser , Semi-Qnt 938591.00 mIU/mL 03/23/24 HCG, Qual, (Negative) Positive H 03/10/24 Urine Opiates Screen, (Negative) Negative ng/mL 10/20/24 Ur Barbiturates Screen, (Negative) Negative ng/mL 10/20/24 Ur Phencyclidine Scrn, (Negative) Negative ng/mL 10/20/24 Ur Amphetamines Screen, (Negative) Negative ng/mL 10/20/24 U Benzodiazepines Scrn, (Negative) Negative ng/mL 10/20/24 Urine Cocaine Screen, (Negative) Negative ng/mL 10/20/24 U Marijuana (THC) Screen, (Negative) Positive ng/mL H 10/20/24 Micro Urine Specimen 04/06/24 Pap Smear Interpret See note 04/25/24 A&P Assessment and plan 1. : 38 w 4 d Active labor h/o x two PDMP PDMP Reviewed: Not Reviewed Attestations Medical Necessity Statement*: patient at 38 w 4 d, with active labor Coding Level of Care Code Acute Code for Chg Fwd Diagnoses Z34.90
--- NOTE | 2024-10-20 20:55 | PM.DELIVERY ---
Delivery Note: Date of delivery: October 20, 2024 Pre-delivery diagnoses: 38 w 4 d limited care active labor Post-delivery diagnoses: 38 w 4 d limited care active labor vaginal delivery Procedure: vaginal delivery Op report anesthesia: None Delivering Physician: Efraín Qureshi MD Estimated blood loss (mL): 300 Findings: , vigorous female Cord gases and blood obtained Normal placenta and cord No episiotomy / lacerations EBL: 300 cc No complications Pre-Delivery Course: normal labor course Delivery: vaginal Post-Delivery Status: good History History History 2 Term 1 1 Miscarriages/Ectopic 0 Living Children 2 A&P Assessment and plan 1. Vaginal delivery: PDMP PDMP Reviewed: Not Reviewed Coding Level of Care Code Acute Code for Chg Fwd Diagnoses Vaginal delivery O80
[2024-10-20 21:30] LABS: PCP Screen Urine Negative (Negative)
[2024-10-21 00:36] VITALS: BP 134/79; PULSE 79; RESP 16; O2SAT 97
[2024-10-21 02:05] VITALS: BP 135/76; PULSE 80; RESP 17
--- NOTE | 2024-10-21 08:52 | PC.NURSE ---
Erickson with child's division at bedside talking to pt
[2024-10-21 09:50] VITALS: BP 124/76; PULSE 81; RESP 17; TEMP 36.7
[2024-10-21] MEDS: PRENATAL VIT NO.130/IRON/FOLIC 1 EACH TABLET PO (10:04)
--- NOTE | 2024-10-21 15:05 | PM.OBGYDC ---
Discharge Providers LAWN CARE TECHNICIAN Date of Admission: 10/20/24 19:40 Date of Discharge: 10/21/24 Attending Provider at Admission: Efraín Qureshi MD Attending Provider at Discharge: Efraín Qureshi MD Consults: none Primary LAWN CARE TECHNICIAN: Efraín Qureshi MD Diagnoses at Discharge Discharge Diagnosis 1. Vaginal delivery: Details from hospital stay: 24 y.o. [facility] October 31, 2024 At 38 w 4 d Last visit here was April 25, 2024 Presented to L&D c/o painful uterine contractions cervix was at 8 cm on admission fetus was reassuring patient progressed to complete dilatation rapidly delivered vaginally without any complications. There were no perineal lacerations patient did well and was discharged to home on the first day Reason for Visit Reason for Visit: Ctx. Brief History: 24 y.o. [facility] October 31, 2024 At 38 w 4 d Last visit here was April 25, 2024 Presented to L&D c/o painful uterine contractions Hospital Course Hospital Course 24 y.o. [facility] October 31, 2024 At 38 w 4 d Last visit here was April 25, 2024 Presented to &D c/o painful uterine contractions cervix was at 8 cm on admission fetus was reassuring patient progressed to complete dilatation rapidly delivered vaginally without any complications. There were no perineal lacerations patient did well and was discharged to home on the first day Information Peripartum Data: Delivery Method: Vaginal Laceration description: None Episiotomy description: None complications: none Physical Exam Narrative: afebrile, VS normal comfortable, awake, alert Lungs: clear Cor: RRR Abd: soft, nontender. fundus firm Ext: no edema; nontender History History History 2 Term 1 1 Miscarriages/Ectopic 0 Living Children 2 Discharge Data Studies Completed and Pending Laboratory Results WBC 15.43 10^3/uL (3.29-11.43) H 10/21/24 10:20 RBC 4.40 10^6/uL (3.85-5.65) 10/21/24 10:20 Hgb 10.10 g/dL (11.27-16.99) L 10/21/24 10:20 Hct 33.3 % (36-47) L 10/21/24 10:20 MCV 75.7 fl (85-98) L 10/21/24 10:20 MCH 23.0 pg (27-33) L 10/21/24 10:20 MCHC 30.3 g/dL (30-55) D 10/21/24 10:20 RDW 16.6 % (12.1-15.1) H 10/21/24 10:20 Plt Count 239 10^3/cmm (157-399) 10/21/24 10:20 MPV 11.2 fL (7.4-10.4) H 10/21/24 10:20 Neut % (Auto) 77.8 % 10/20/24 19:30 Lymph % (Auto) 15.1 % 10/20/24 19:30 [place] % (Auto) 5.8 % 10/20/24 19:30 Eos % (Auto) 0.2 % 10/20/24 19:30 Baso % (Auto) 0.3 % 10/20/24 19:30 Neut # (Auto) 12.45 10^3/uL (1.8-7.7) H 10/20/24 19:30 Lymph # (Auto) 2.4 10^3/uL (0.8-4.8) 10/20/24 19:30 [place] # (Auto) 0.9 10^3/uL (0.2-0.9) 10/20/24 19:30 Eos # (Auto) 0.0 10^3/uL (0.0-0.8) 10/20/24 19:30 Baso # (Auto) 0.1 10^3/uL (0.0-0.1) 10/20/24 19:30 Nucleated RBC % (auto) 0 % 10/20/24 19:30 Nucleated RBCs # 0.0 /100WBC 10/20/24 19:30 Urine Opiates Screen Negative ng/mL (Negative) 10/20/24 19:49 Ur Barbiturates Screen Negative ng/mL (Negative) 10/20/24 19:49 Ur Phencyclidine Scrn Negative ng/mL (Negative) 10/20/24 19:49 Ur Amphetamines Screen Negative ng/mL (Negative) 10/20/24 19:49 U Benzodiazepines Scrn Negative ng/mL (Negative) 10/20/24 19:49 Urine Cocaine Screen Negative ng/mL (Negative) 10/20/24 19:49 U Marijuana (THC) Screen Positive ng/mL (Negative) H 10/20/24 19:49 Blood Type A Positive 10/20/24 19:30 Rho(D) Type Rh positive 10/20/24 19:30 Antibody Screen Negative 10/20/24 19:30 Procedures Performed vaginal delivery Vitals Last Vital Signs Temp 97.9 F 10/21/24 21:04 Pulse 61 10/21/24 21:04 Resp 16 10/21/24 21:04 BP 144/80 10/21/24 21:04 Pulse Ox 98 10/21/24 21:04 O2 Del Method Room Air 10/21/24 21:00 Results Labs OB ([facility]): Obstetrics US 04/01/24 Obstetrics US/Biophysical Profile 03/16/23 Blood Type A Positive 10/20/24 Antibody Screen Negative 10/20/24 Hct, (36-47) 33.3 % L Today Hgb, (11.27-16.99) 10.10 g/dL L Today Rho(D) Type Rh positive 10/20/24 Plt Count, (157-399) 239 10^3/cmm Today Hep Bs Antigen, (Nonreactive) Non-reactive 04/06/24 Hepatitis C Antibody, (Nonreactive) Non-reactive 04/06/24 Rubella IgG Antibody, (0.0-10.0) 37.2 IU/mL H 04/06/24 RPR, (Nonreactive) Nonreactive 04/06/24 HIV 1&2 Ab & HIV 1 Ag, (Non-Reactiv) Non-reactive 04/06/24 TSH, (0.27-4.20) 4.19 uIU/mL 05/23/24 Free T4, (0.82-1.77) 1.07 ng/dL 05/23/24 Ser , Semi-Qnt 048948.00 mIU/mL 03/23/24 HCG, Qual, (Negative) Positive H 03/10/24 Urine Opiates Screen, (Negative) Negative ng/mL 10/20/24 Ur Barbiturates Screen, (Negative) Negative ng/mL 10/20/24 Ur Phencyclidine Scrn, (Negative) Negative ng/mL 10/20/24 Ur Amphetamines Screen, (Negative) Negative ng/mL 10/20/24 U Benzodiazepines Scrn, (Negative) Negative ng/mL 10/20/24 Urine Cocaine Screen, (Negative) Negative ng/mL 10/20/24 U Marijuana (THC) Screen, (Negative) Positive ng/mL H 10/20/24 Micro Urine Specimen 04/06/24 Pap Smear Interpret See note 04/25/24 Discharge Plan Discharge Patient Disposition: Home Condition: Stable Prescriptions: Continued Tylenol Extended Release 1 - 2 tab PO PRN PRN (Reason: Pain) Discharge Order = DC NOW: Discharge Order (Routine); Ordered 10/21/24 Ordered By: Efraín Qureshi Referrals: Jacki Waters NP [Nurse Practitioner, LAWN CARE TECHNICIAN] - 12/06/24 8:30 am Discharge Diet: Usual diet Discharge Activity: Increase activity as tolerated Patient Instructions: Depression (GEN), Bleeding (GEN), Preeclampsia and Eclampsia After Delivery (GEN), Hemorrhage (GEN), OB Discharge Report, OB Food/Drug Interaction Guide, Opioid Safety, OB Home Care, OB Proud Parent Packet, OB Vaginal Deliveries, OB Vaginal Deliveries - [facility], Patient Portal & [employer]ya Instructions, Abnormal Bleeding, Abnormal Uterine Bleeding Discharge Attestations LAWN CARE TECHNICIAN Time Spent in Discharge Care*: less than 30 min Coding Level of Care Code Acute Code for Chg Fwd Diagnoses Vaginal delivery O80
[2024-10-21 16:50] VITALS: BP 136/87; PULSE 83; RESP 17; TEMP 36.7
[2024-10-21 20:43] LABS: Hematocrit 33.3 % (36-47); Hemoglobin 10.10 g/dL (11.27-16.99); Mean Corpuscular HGB Conc 30.3 g/dL (30-55); Mean Corpuscular Hemoglobin 23.0 pg (27-33); Mean Corpuscular Volume 75.7 fl (85-98); Platelet Count 239 10^3/cmm (157-399); Red Blood Count 4.40 10^6/uL (3.85-5.65); White Blood Count 15.43 10^3/uL (3.29-11.43)
[2024-10-21 21:00] VITALS: BP 144/80; PULSE 61; RESP 16; TEMP 36.6; O2SAT 98
[2024-10-21 21:04] VITALS: BP 144/80; PULSE 61; RESP 16; TEMP 36.6; O2SAT 98
== END 2024-10-21 21:10 | disposition home or self-care (01) | DRG 807 ==
LOC: OPOB 19:50 → OBGYN 19:50
PROVIDERS: Admitting Provider Obstetrics & Gynecology; Visit Provider Obstetrics & Gynecology
DX: O98.72 Human immunodeficiency virus [HIV] disease complicating childbirth (principal); Z37.0 Single live birth; O99.334 Smoking (tobacco) complicating childbirth; F17.200 Nicotine dependence, unspecified, uncomplicated; Z3A.38 38 weeks gestation of pregnancy; Z21 Asymptomatic human immunodeficiency virus [HIV] infection status
CPT/HCPCS: 36415; 59409; 80306; 85025; 85027; 86850; 86900; J9999

== ENCOUNTER → 2025-01-05 09:35 | Outpatient (BNVA) | payer BC, MEDICAID, SELFPAY | PROVIDERS: PCP Family Medicine; Visit Provider Family Medicine | DX: Z30.09 Encounter for other general counseling and advice on contraception (principal) | CPT/HCPCS: 81025 ==